=== PATIENT | female | born 1965 | race Caucasian/White ===

== ENCOUNTER 2018-01-17 20:24 | Emergency (ER) | payer MEDICAID ==
[2018-01-17] MEDS ORDERED: KETOROLAC TROMETHAMINE 60 MG/2 ML SDV IM ONE (21:29)
--- NOTE | 2018-01-17 21:34 | ER Document Report ---
ED Medical Screen (RME) - General Chief Complaint: Numbness of Arm Stated Complaint: NECK AND BACK PAIN Time Seen by Provider: 01/17/18 21:29 Mode of Arrival: Ambulatory Information source: Patient Notes: Patient is a 52-year-old female who presents with complaints of neck and back pain after falling yesterday. Patient reports that she had surgery done to her C3 through 7 in 2014 and she has been having issues with nerve damage ever since then. Patient reports over the last few days she has been more active than usual which is what she feels led to her mechanical fall. Patient reports that she fell from standing onto a hard surface. Visible injury includes a small area of erythema to right anterior knee. Patient's main complaint today is cervical and thoracic spine pain as well as numbness and tingling to her upper and lower extremities on the left side. Patient reports that this does happen from time to time however it is worse now since she had the fall. Exam: Tenderness to palpation to cervical spine near C2. Tenderness to palpation to entire thoracic spine. Plan: Will order plain films of the thoracic and cervical spine from triage. Will also order Toradol 60 mg IM, patient reports this may not work for her as she usually gets something stronger. I have greeted and performed a rapid initial assessment of this patient. A comprehensive ED assessment and evaluation of the patient, analysis of test results and completion of the medical decision making process will be conducted by additional ED providers. Dictation of this chart was performed using voice recognition software; therefore, there may be some unintended grammatical errors. TRAVEL OUTSIDE OF THE [place] IN LAST 30 DAYS: No - Related Data Allergies/Adverse Reactions: hydromorphone [From Dilaudid] Allergy (Verified 01/17/18 20:30) Physical Exam - Vital signs Vitals: Temp Pulse Resp BP Pulse Ox 98 F 88 18 106/87 H 96 01/17/18 20:35 01/17/18 20:35 01/17/18 20:35 01/17/18 20:35 01/17/18 20:35 Course - Vital Signs Vital signs: Temp Pulse Resp BP Pulse Ox 98 F 88 18 106/87 H 96 01/17/18 20:35 01/17/18 20:35 01/17/18 20:35 01/17/18 20:35 01/17/18 20:35
--- NOTE | 2018-01-17 21:58 | RADIOLOGY REPORT (SQ) ---
EXAM DESCRIPTION: CERV SP 3 VIEW OR LESS COMPLETED DATE/TIME: 01/17/2018 9:48 pm REASON FOR STUDY: fall with cervical pain COMPARISON: None. NUMBER OF VIEWS: Three views. TECHNIQUE: AP, lateral and odontoid radiographic images acquired of the cervical spine. LIMITATIONS: None. FINDINGS: MINERALIZATION: Normal. ALIGNMENT: Anatomic. VERTEBRAE: Vertebral bodies of normal height. DISCS: Disc implants and hardware at C5-6 and C6-7 HARDWARE: None in the spine. SOFT TISSUES: No masses or calcifications. Lung apices clear. OTHER: No other significant finding. IMPRESSION: NO SIGNIFICANT RADIOGRAPHIC FINDING IN THE CERVICAL SPINE. TECHNICAL DOCUMENTATION: JOB ID: [id number] [employer]- All Rights Reserved Reading location - IP/workstation name: [email or web address]
--- NOTE | 2018-01-17 21:59 | RADIOLOGY REPORT (SQ) ---
EXAM DESCRIPTION: T SPINE AP/LAT COMPLETED DATE/TIME: 01/17/2018 9:48 pm REASON FOR STUDY: fall, thoracic back pain COMPARISON: None. NUMBER OF VIEWS: Two views. TECHNIQUE: AP and lateral radiographic images acquired of the thoracic spine. LIMITATIONS: None. FINDINGS: MINERALIZATION: Normal. ALIGNMENT: Mild scoliosis. VERTEBRAE: No fracture or bone lesion. Maintained height, normal segmentation. DISCS: No significant loss of height or significant narrowing. No large osteophytes. HARDWARE: None in the spine. MEDIASTINUM AND SOFT TISSUES: Normal heart size and aortic contour. No soft tissue abnormality. VISUALIZED LUNG BOO: Clear. OTHER: No other significant finding. IMPRESSION: Mild scoliosis. No acute abnormality. TECHNICAL DOCUMENTATION: JOB ID: [id number] [employer]- All Rights Reserved Reading location - IP/workstation name: [email or web address]
[2018-01-17] MEDS ORDERED: MORPHINE SULFATE 10 MG/ML INJ IM ONE (22:43)
--- NOTE | 2018-01-17 22:50 | ER Document Report ---
ED General - General Chief Complaint: Numbness of Arm Stated Complaint: NECK AND BACK PAIN Time Seen by Provider: 01/17/18 21:29 Mode of Arrival: Ambulatory Information source: Patient, Friend, [facility] Records Notes: Patient is a 52-year-old female with type 2 diabetes, lupus, chronic neck and back pain, neuropathy presents with complaints of neck and back pain after falling yesterday. Patient reports that she had surgery done to her C3 through 7 in 2016 and she has been having issues with nerve damage ever since then. Patient reports over the last few days she has been more active than usual which is what she feels led to her mechanical fall. Patient reports that she fell from standing onto a hard surface. She denies any preceding chest pain, shortness of breath, lightheadedness. She states that she has frequent falls. Yesterday she fell forward onto her right knee but is experiencing increased pain in her neck and upper back. She does not take anything currently for pain. TRAVEL OUTSIDE OF THE [place] IN LAST 30 DAYS: No - HPI Onset: Yesterday Onset/Duration: Sudden, Persistent, Worse Quality of pain: Achy, Burning, Throbbing Severity: Moderate Associated symptoms: None Exacerbated by: Movement, Walking Relieved by: Remaining still Similar symptoms previously: Yes Recently seen / treated by doctor: Yes - Related Data Allergies/Adverse Reactions: hydromorphone [From Dilaudid] Allergy (Verified 01/17/18 20:30) Past Medical History - General Information source: Patient - Social History Smoking Status: Current Every Day Smoker Cigarette use (# per day): Yes - 5 Smoking Education Provided: Yes - Patient counselled regarding cessation for 4 minutes Frequency of alcohol use: None Drug Abuse: None Lives with: Friend Family History: Reviewed & Not Pertinent Patient has suicidal ideation: No Patient has homicidal ideation: No - Medical History Medical History: Other - lupus Endocrine Medical History: Reports: Hx Diabetes Mellitus Type 2 Review of Systems - Review of Systems Notes: REVIEW OF SYSTEMS: CONSTITUTIONAL : Denies fever, chills, or sweats. Denies recent illness. Denies weight loss, recent hospitalizations. EENT: Denies visual changes, eye pain. Denies nasal or sinus congestion or discharge. Denies sore throat, oral lesions, difficulty swallowing. CARDIOVASCULAR: Denies chest pain. Denies palpitations. Denies lower extremity edema. RESPIRATORY: Denies cough, cold, or chest congestion. Denies shortness of breath, wheezing. GASTROINTESTINAL: Denies abdominal pain or distention. Denies nausea, vomiting , or diarrhea. Denies blood in vomitus, stools, or per rectum. Denies black, tarry stools. Denies constipation. GENITOURINARY: Denies difficulty urinating, painful urination, frequency, blood in urine, or vaginal discharge. MUSCULOSKELETAL: Denies joint pain or swelling. SKIN: Denies rash, lesions or sores. HEMATOLOGIC : Denies easy bruising or bleeding. LYMPHATIC: Denies swollen glands. NEUROLOGICAL: Denies confusion or altered mental status. Denies passing out or loss of consciousness. Denies dizziness or lightheadedness. Denies headache. Denies weakness or paralysis. Denies problems difficulty with ambulation, slurred speech. Denies sensory loss, numbness, or tingling. Denies seizures. PSYCHIATRIC: Denies anxiety or stress. Denies depression, suicidal ideation, or homicidal ideation. Denies visual or auditory hallucinations. Physical Exam - Vital signs Vitals: Temp Pulse Resp BP Pulse Ox 98 F 88 18 106/87 H 96 01/17/18 20:35 01/17/18 20:35 01/17/18 20:35 01/17/18 20:35 01/17/18 20:35 - Notes Notes: PHYSICAL EXAMINATION: GENERAL: Well-appearing, well-nourished and in no acute distress. HEAD: Atraumatic, normocephalic. EYES: Pupils equal round and reactive to light, extraocular movements intact, conjunctiva are normal. ENT: Nares patent, oropharynx clear without exudates. Moist mucous membranes. NECK: Normal range of motion, supple without lymphadenopathy. Midline tenderness LUNGS: Breath sounds clear to auscultation bilaterally and equal. No wheezes rales or rhonchi. HEART: Regular rate and rhythm without murmurs ABDOMEN: Soft, nontender, nondistended abdomen. No guarding, no rebound. No masses appreciated. Female : deferred Musculoskeletal: Normal range of motion, no pitting or edema. No cyanosis. Tenderness of the thoracic spine without any step-off or deformity. NEUROLOGICAL: Cranial nerves grossly intact. Normal speech, normal gait. Normal sensory, motor exams PSYCH: Normal mood, normal affect. SKIN: Warm, Dry, normal turgor, no rashes or lesions noted. Course - Re-evaluation Re-evalutation: 01/17/18 22:48 Cervical Spine X-Ray 01/17/18 21:29 IMPRESSION: NO SIGNIFICANT RADIOGRAPHIC FINDING IN THE CERVICAL SPINE. Thoracic Spine X-Ray 01/17/18 21:30 IMPRESSION: Mild scoliosis. No acute abnormality. Patient is a 52-year-old female with type 2 diabetes, lupus, chronic neck and back pain, neuropathy presents with complaints of neck and back pain after falling yesterday. Patient reports that she had surgery done to her C3 through 7 in 2016 and she has been having issues with nerve damage ever since then. Patient reports over the last few days she has been more active than usual which is what she feels led to her mechanical fall. Patient reports that she fell from standing onto a hard surface. She denies any preceding chest pain, shortness of breath, lightheadedness. She states that she has frequent falls. Patient was seen by myself upon arrival. Vital signs were reviewed. Patient is afebrile, normotensive and not hypoxic. Patient does not appear toxic or dehydrated. They are in no acute distress. Previous medical records and nursing notes reviewed. Exam is significant for midline tenderness of the cervical and pain. X-rays of the C-spine and thoracic spine were obtained and showed no acute abnormality. Patient was given morphine IM during her ED course and discharged home in stable condition. 01/17/18 22:51 - Vital Signs Vital signs: Temp Pulse Resp BP Pulse Ox 98 F 88 18 106/87 H 96 01/17/18 20:35 01/17/18 20:35 01/17/18 20:35 01/17/18 20:35 01/17/18 20:35 - Diagnostic Test Radiology reviewed: Image reviewed, Reports reviewed Discharge - Discharge Clinical Impression: Neck pain Thoracic back pain Qualifiers: Chronicity: unspecified Back pain laterality: midline Qualified Code(s): M54.6 - Pain in thoracic spine Fall Qualifiers: Encounter type: initial encounter Qualified Code(s): W19.XXXA - Unspecified fall, initial encounter Condition: Good Disposition: HOME, SELF-CARE Instructions: Chronic Back Pain ([facility]), Neck Injury (Cervical Strain) ([facility]) Additional Instructions: Follow up with your physician tomorrow for further care or return to the ED IMMEDIATELY if symptoms worsen or new concerns occur. If you cannot afford to follow up with your primary care physician a list of low cost clinics have been provided at the end of your discharge papers as well. Forms: Smoking Cessation Education
[2018-01-17 23:24] VITALS: BP 127/87
== END 2018-01-17 23:21 | disposition home or self-care (01) ==
LOC: ER 20:24
DX: R20.0 Anesthesia of skin (principal); M54.2 Cervicalgia; M54.6 Pain in thoracic spine; W18.30XA Fall on same level, unspecified, initial encounter; F17.210 Nicotine dependence, cigarettes, uncomplicated; E11.9 Type 2 diabetes mellitus without complications
CPT/HCPCS: 99406; 99284; 96372; 72040; 72070; J1885; J2270

== ENCOUNTER 2019-01-10 23:52 | Emergency (ER) | payer MEDICARE ==
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
[2019-01-11 04:28] VITALS: BP 110/69
== END 2019-01-11 04:35 | disposition home or self-care (01) ==
LOC: ER 23:52
DX: M54.2 Cervicalgia (principal); R20.0 Anesthesia of skin; E11.9 Type 2 diabetes mellitus without complications; Z91.010 Allergy to peanuts; Z91.013 Allergy to seafood
CPT/HCPCS: 99284; 73030; 72125; L0172

== ENCOUNTER 2019-01-11 16:04 | Emergency (ER) | payer MEDICAID, MEDICARE ==
[2019-01-11 16:35] VITALS: BP 113/72
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
--- NOTE | 2019-01-11 18:51 | RADIOLOGY REPORT (SQ) ---
EXAM DESCRIPTION: MRI CERVICAL SPINE WITHOUT COMPLETED DATE/TIME: 01/11/2019 6:25 pm REASON FOR STUDY: neck pain; numbness and tingling COMPARISON: None. TECHNIQUE: Sagittal and Axial imaging includes T1, T2, STIR and gradient echo sequences. LIMITATIONS: None. FINDINGS: ALIGNMENT: Normal. VERTEBRAE: Intact. BONE MARROW: Normal. No marrow replacement or reactive changes. DISCS: Disc implants at C5-6 and C6-7. HARDWARE: See above CORD AND BASE OF BRAIN: Normal in size and signal intensity. SOFT TISSUES: No soft tissue masses. C1-C2: No significant spinal stenosis. C2-C3: No significant spinal stenosis or exit foraminal stenosis. C3-C4: No significant spinal stenosis or exit foraminal stenosis. C4-C5: There is broad-based disc/ osteophyte complex with narrowing of the right neural foramen. C5-C6: Disc implant. Left-sided disc/osteophyte complex. See image 92 series 8 this slightly deform s the spinal cord on the left. No foraminal stenosis. C6-C7: Disc implant. No significant spinal stenosis or exit foraminal stenosis. C7-T1: No significant spinal stenosis or exit foraminal stenosis. UPPER THORACIC: Incompletely imaged. No significant spinal stenosis or exit foraminal stenosis. OTHER: No other significant finding. IMPRESSION: Broad-based disc/osteophyte complex at C4-5. Left-sided disc/ osteophyte complex at C5- 6. Findings as described. TECHNICAL DOCUMENTATION: JOB ID: [id number] [employer]- All Rights Reserved Reading location - IP/workstation name: [email or web address]
--- NOTE | 2019-01-11 20:02 | ER Document Report ---
ED Neck/Back Problem - General Chief Complaint: Neck Injury Stated Complaint: MRI/FOLLOW UP Time Seen by Provider: 01/11/19 16:53 Mode of Arrival: Ambulatory Information source: Patient TRAVEL OUTSIDE OF THE [place] IN LAST 30 DAYS: No - HPI Patient complains to provider of: Pain, Neck Onset: Yesterday Onset: Sudden Timing: Constant Severity: Mild Pain Level: 1 Context: Other - Trauma Recent injury: Yes Associated symptoms: Radiation to arm Exacerbated by: Movement of neck Relieved by: Remaining still Similar symptoms previously: Yes Recently seen / treated by doctor: No - Related Data Allergies/Adverse Reactions: Iodinated Contrast- Oral and IV Dye Allergy (Severe, Verified 01/11/19 16:12) peanut Allergy (Severe, Verified 01/11/19 16:12) shellfish derived Allergy (Severe, Verified 01/11/19 16:12) hydromorphone [From Dilaudid] Allergy (Verified 01/11/19 16:12) Past Medical History - Social History Smoking Status: Former Smoker Chew tobacco use (# tins/day): No Frequency of alcohol use: Occasional Drug Abuse: None Family History: Reviewed & Not Pertinent Patient has suicidal ideation: No Patient has homicidal ideation: No Endocrine Medical History: Reports: Hx Diabetes Mellitus Type 2 Renal/ Medical History: Denies: Hx Peritoneal Dialysis Review of Systems - Review of Systems Constitutional: No symptoms reported EENT: No symptoms reported Cardiovascular: No symptoms reported Respiratory: No symptoms reported Gastrointestinal: No symptoms reported Genitourinary: No symptoms reported Female Genitourinary: No symptoms reported Musculoskeletal: No symptoms reported Skin: No symptoms reported Hematologic/Lymphatic: No symptoms reported Neurological/Psychological: No symptoms reported -: Yes All other systems reviewed and negative Physical Exam - Vital signs Vitals: Temp Pulse Resp BP Pulse Ox 99.0 F 79 16 113/72 98 01/11/19 16:33 01/11/19 16:33 01/11/19 16:33 01/11/19 16:33 01/11/19 16:33 Interpretation: Normal - General General appearance: Appears well, Alert - HEENT Head: Normocephalic, Atraumatic Eyes: Normal Pupils: PERRL - Respiratory Respiratory status: No respiratory distress Chest status: Nontender Breath sounds: Normal Chest palpation: Normal - Cardiovascular Rhythm: Regular Heart sounds: Normal auscultation Murmur: No - Abdominal Inspection: Normal Distension: No distension Bowel sounds: Normal Tenderness: Nontender Organomegaly: No organomegaly - Back Back: Normal, Nontender - Extremities General upper extremity: Normal inspection, Nontender, Normal color, Normal ROM, Normal temperature General lower extremity: Normal inspection, Nontender, Normal color, Normal ROM, Normal temperature, Normal weight bearing. No: Janell's sign - Neurological Neuro grossly intact: Yes Cognition: Normal Orientation: AAOx4 Curran Coma Scale Eye Opening: Spontaneous Curran Coma Scale Verbal: Oriented Raul Coma Scale Motor: Obeys Commands Raul Coma Scale Total: 15 Speech: Normal Motor strength normal: LUE, RUE, LLE, RLE Sensory: Normal - Psychological Associated symptoms: Normal affect, Normal mood - Skin Skin Temperature: Warm Skin Moisture: Dry Skin Color: Normal Course - Vital Signs Vital signs: Temp Pulse Resp BP Pulse Ox 99.0 F 79 16 113/72 98 01/11/19 16:33 01/11/19 16:33 01/11/19 16:33 01/11/19 16:33 01/11/19 16:33 - Diagnostic Test Radiology reviewed: Reports reviewed - Transfer of Care Notes: 01/11/19 21:07 Patient eloped from the ED before I got a call back from the Neurosurgeon Dr. Benjamin at [facility]. Discharge - Discharge Clinical Impression: Neck pain Condition: Stable Disposition: ELOPED
== END 2019-01-11 20:45 | disposition left against medical advice (07) ==
LOC: ER 16:04
DX: M54.2 Cervicalgia (principal); Y09 Assault by unspecified means; Z53.20 Procedure and treatment not carried out because of patient's decision for unspecified reasons; E11.9 Type 2 diabetes mellitus without complications; Z91.040 Latex allergy status; Z91.010 Allergy to peanuts; Z91.013 Allergy to seafood; Z88.5 Allergy status to narcotic agent; Z87.891 Personal history of nicotine dependence
CPT/HCPCS: 72141; 99281